=== PATIENT | male | born 1950 | race Caucasian/White ===

== ENCOUNTER 2023-09-04 15:02 | Outpatient (REF) | payer MEDICARE, SELFPAY ==
[2023-09-04 15:29] LABS: Anion Gap 5.2 mmol/L (3-11); BUN 15 mg/dL (7-18); CO2 31.8 mmol/L (21.0-32.0); CREATININE 1.1 mg/dL (0.70-1.30); Calculated LDL 88 mg/dL (<100); Chloride 104 mmol/L (98-107); Cholesterol 171 mg/dL (<200); Estimated GFR 70.44 (mL/min/1.73m2); Glucose 125 mg/dL (74-106); HDL Cholesterol 67 mg/dL (40-60); Potassium 4.5 mmol/L (3.5-5.1); Sodium 141 mmol/L (136-145); Triglyceride 80 mg/dL (<150)
== END 2023-09-04 15:03 | disposition home or self-care (01) ==
LOC: NCHCN 15:02
PROVIDERS: Visit Provider Nurse Practitioner Family
DX: I10 Essential (primary) hypertension (principal)
CPT/HCPCS: 80048; 80061

== ENCOUNTER 2024-07-08 15:29 | Outpatient (REF) | payer MEDICARE, SELFPAY ==
[2024-07-08 15:02] LABS: ALT 41 U/L (16-63); AST 20 U/L (15-37); Albumin 3.8 g/dL (3.4-5.0); Alkaline Phosphatase 121 U/L (46-116); Anion Gap 6.7 mmol/L (3-11); BUN 20 mg/dL (7-18); Bilirubin, Total 1.02 mg/dL (0.2-1.0); CO2 30.3 mmol/L (21.0-32.0); CREATININE 1.3 mg/dL (0.70-1.30); Calcium 9.6 mg/dL (8.5-10.1); Calculated LDL 79 mg/dL (<100); Chloride 105 mmol/L (98-107); Cholesterol 147 mg/dL (<200); Estimated GFR 57.29 (mL/min/1.73m2); Glucose 152 mg/dL (74-106); HDL Cholesterol 49 mg/dL (40-60); Potassium 4.6 mmol/L (3.5-5.1); Sodium 142 mmol/L (136-145); Total Protein 7.2 g/dL (6.4-8.2); Triglyceride 98 mg/dL (<150)
== END 2024-07-08 15:30 | disposition home or self-care (01) ==
LOC: NCHCN 15:29
PROVIDERS: Visit Provider Nurse Practitioner Family
DX: I10 Essential (primary) hypertension (principal)
CPT/HCPCS: 80053; 80061

== ENCOUNTER 2025-01-04 12:19 | Outpatient (REF) | payer MEDICARE, SELFPAY ==
[2025-01-04 15:54] LABS: Hemoglobin A1C 6.3 % (<5.7)
[2025-01-04 15:58] LABS: ALT 75 U/L (16-63); AST 40 U/L (15-37); Alkaline Phosphatase 118 U/L (46-116); BUN 21 mg/dL (7-18); CREATININE 1.2 mg/dL (0.70-1.30); Calcium 9.4 mg/dL (8.5-10.1); Chloride 105 mmol/L (98-107); Estimated GFR 62.67 (mL/min/1.73m2); GGT 18 U/L (15-85); Glucose 137 mg/dL (74-106); Potassium 4.1 mmol/L (3.5-5.1); Sodium 144 mmol/L (136-145); Total Protein 7.3 g/dL (6.4-8.2)
[2025-01-04 16:50] LABS: COMMENT (LAB VIEW ONLY) 129.31 mg/dL; Microalb ug/mg Crea 8.7 ug/mg Cr
[2025-01-04 22:20] LABS: PSA, Screening 1.6 ng/mL (<=6.5)
[2025-01-04 22:31] LABS: Hepatitis B Surface Ag Negative (Negative)
[2025-01-04 23:03] LABS: HIV-1/2 Ag & Ab Screen Negative (Negative)
[2025-01-04 23:05] LABS: Hepatitis C Ab w Rflx HCV PCR Negative (Negative)
[2025-01-05 12:20] LABS: Chlamydia Result Negative (Negative); GC Result Negative (Negative)
[2025-01-05 12:21] LABS: Syphilis Serology (RPR) Negative (Negative)
== END 2025-01-04 12:20 | disposition home or self-care (01) ==
LOC: NCHCN 12:19
PROVIDERS: PCP Nurse Practitioner Family; Visit Provider Nurse Practitioner Family
DX: R74.8 Abnormal levels of other serum enzymes (principal); R73.03 Prediabetes; Z12.5 Encounter for screening for malignant neoplasm of prostate; M54.50 Low back pain, unspecified
CPT/HCPCS: 80053; 84153; 86803; 87340; 87389; 87491; 87591; 82043; 82570; 82977; 83036; 86592; 87086

== ENCOUNTER 2025-02-10 10:31 | Outpatient (REF) | payer MEDICARE, SELFPAY ==
[2025-02-10 15:15] LABS: Bacteria Rare HPF (Negative); C & S Indicated? No; Casts Negative LPF (Negative); Crystals Negative HPF (Negative); Epithelial Cells Rare HPF (Negative); Mucus Negative (Negative); RBC 0-2 HPF (0-2)
[2025-02-10 15:28] LABS: ALT 36 U/L (16-63); AST 20 U/L (15-37); Alkaline Phosphatase 100 U/L (46-116); Anion Gap 6.6 mmol/L (3-11); BUN 21 mg/dL (7-18); Bilirubin, Total 1.5 mg/dL (0.2-1.0); CO2 30.4 mmol/L (21.0-32.0); CREATININE 1.2 mg/dL (0.70-1.30); Calcium 9.3 mg/dL (8.5-10.1); Chloride 103 mmol/L (98-107); Estimated GFR 62.67 (mL/min/1.73m2); Glucose 147 mg/dL (74-106); Potassium 4.5 mmol/L (3.5-5.1); Sodium 140 mmol/L (136-145); Total Protein 7.4 g/dL (6.4-8.2); Vitamin D 25 Total 29 ng/mL (30-100)
== END 2025-02-10 10:32 | disposition home or self-care (01) ==
LOC: NCHCN 10:31
PROVIDERS: PCP Nurse Practitioner Family; Visit Provider Nurse Practitioner Family
DX: R74.8 Abnormal levels of other serum enzymes (principal)
CPT/HCPCS: 80053; 82248; 82306; 81015